=== PATIENT | male | born 1965 | race Caucasian/White ===

== ENCOUNTER 2016-10-27 15:44 | Emergency (ER) | payer MEDICARE ==
--- NOTE | ~2016-10-27 | ER ---
PATIENT'S NAME: AFRICA JUAREZ [facility] AGE: 51 Y [address] ROOM: [place] [address] LOCATION: ED ADMIT DATE: 10/27/2016 ER/Outpatient Report DISCHARGE DATE: 10/27/2016 FAMILY PHYSICIAN: PHYSICIAN, NO ATTENDING PHYSICIAN: Lino Ambrose Time of Arrival: 1544 hours. Time of Evaluation: 1615 hours. CHIEF COMPLAINT: Swollen testicle. HISTORY OF PRESENT ILLNESS: The patient is a 51-year-old male, who presents to the emergency department today with a chief complaint of swollen testicle. He reports that this swollen testicle started last night. The pain got worse today. He was seen in the ER last night and was diagnosed with bronchitis. He saw me yesterday as well in the morning and after a fall. He reports some subjective fevers, chills, and chronic cough. He is attempting to quit smoking. No chest pain. Does have some nausea. No vomiting. No diarrhea or constipation. He has chronic headaches. He reports pain is currently 10/10 in severity. It is worse with movement. It is sharp. PAST MEDICAL HISTORY: Asthma, COPD, hypertension, chronic back pain, chronic bronchitis, and stroke. PAST SURGICAL HISTORY: Right knee, back, and corneal transplant. SOCIAL HISTORY: The patient smokes a pack per day for 30 years. Denies any alcohol or illicit drug use. ALLERGIES: PENICILLIN, LITHIUM, AND BEE STINGS. MEDICATIONS: Tylenol. Please see list. PRIMARY CARE DOCTOR: None. REVIEW OF SYSTEMS: All systems are reviewed by myself and negative with the exception of those discussed in HPI and past medical history. PATIENT'S NAME: AFRICA JUAREZ [facility] AGE: 51 Y [address] ROOM: [place] [address] LOCATION: ED ADMIT DATE: 10/27/2016 ER/Outpatient Report DISCHARGE DATE: 10/27/2016 FAMILY PHYSICIAN: PHYSICIAN, NO ATTENDING PHYSICIAN: Lino Ambrose PHYSICAL EXAMINATION: VITAL SIGNS: Blood pressure 125/87, pulse 77, respiratory rate 22, temperature 98.3, and oxygen saturation 97% on room air. GENERAL: The patient is a 51-year-old male, who appears stated age, in mild- to-moderate acute distress. HEENT: Head normocephalic and atraumatic. Pupils are equal, round, and reactive to light and accommodation. Nares are patent bilaterally. TMs are clear. Oropharynx is clear. NECK: Supple. There is no nuchal rigidity. CARDIOVASCULAR: Regular rate and rhythm. No murmurs, rubs, or gallops. LUNGS: Clear to auscultation bilaterally. No wheezes, rales, or rhonchi. GENITALIA: The patient's right testicle has tenderness to palpation. It was boggy and swollen. Cremaster reflex was intact bilaterally. SKIN: Warm and dry. There is no rashes or lesions noted. LABORATORY AND X-RAYS: Ultrasound of the testicle shows evidence of epididymitis with erythema. CBC is normal. CMP is normal. Lactate is normal. Procalcitonin is normal. LFTs normal. Coags are normal. Urine culture is pending. IMPRESSION: 1. Acute right epididymitis. 2. Initial visit. EMERGENCY DEPARTMENT COURSE: The patient brought back to the examination room. Seen and evaluated by myself. IV was established. Laboratory analysis and imaging are obtained as described above. The patient was given Dilaudid 0.5 mg IV as well as 4 mg of Zofran IV and started on a liter of normal saline. Repeat doses of Dilaudid 0.5 mg are given x2. He was given a dose of Rocephin 1 gram IV. I have discussed the results with the patient and his , who is at the bedside. I have written a prescription for [place] for home, Levaquin for home, as well as doxycycline for home. I have asked he follows up with Urology in 1 to 2 days. I have also asked to follows up with primary care doctor in 3 to 5 days. We discussed different primary care doctor options in the [place] area. I have discussed the sedation warning with the [place]. I have discussed return to care instructions including worsening symptoms or other concerns, to return to the emergency department as soon as possible. The patient agreeable without further questions at this time. DISPOSITION: The patient discharged home in good condition. PATIENT'S NAME: AFRICA JUAREZ [facility] AGE: 51 Y [address] ROOM: [place] [address] LOCATION: ED ADMIT DATE: 10/27/2016 ER/Outpatient Report DISCHARGE DATE: 10/27/2016 FAMILY PHYSICIAN: FOSTER WALLACE ATTENDING PHYSICIAN: Lino Ambrose DO NOVA JIN/terencel /[id number] d: 10/27/162201 t: 10/30/161901, OUTPATIENT REPORT
[2016-10-27 16:26] LABS: BASOPHIL # 0.1 K/uL (0.0-0.2); BASOPHIL % 0.6 %; EOSINOPHIL # 0.5 K/uL (0.0-0.5); EOSINOPHIL % 5.7 %; HEMATOCRIT 42.8 % (37.0-53.0); HEMOGLOBIN 14.3 g/dL (12.0-17.0); IMMATURE GRANULOCYTE % 0.2 %; MCH 30.4 pg (27.0-34.0); MCHC 33.4 gm/dL (32.0-36.5); MCV 90.9 fl (83.0-98.0); MONOCYTE # 0.6 K/uL (0.0-1.0); MONOCYTE % 7.5 %; MPV 8.8 fl (9.4-12.4); NRBC % 0 /100WBC (0-0.00); PLATELET COUNT 270 K/uL (150-450); RBC 4.71 M/uL (4.00-6.00); RDW-CV 12.7 % (11.9-14.6); WBC 8.1 K/uL (4.0-11.0)
[2016-10-27 16:37] LABS: PROTIME 10.2 SECONDS (9.6-11.1); PTT 27 SECONDS (25-32)
[2016-10-27 16:42] LABS: ALBUMIN 3.6 gm/dL (3.5-5.0); ALK PHOS 50 IU/L (33-138); ALT 49 IU/L (12-78); ANION GAP 15.6 (10.0-19.0); AST 24 IU/L (10-40); BLOOD UREA NITROGEN 12 mg/dL (6-24); CALCIUM 8.6 mg/dL (8.5-10.5); CHLORIDE 107 mMol/L (96-110); CO2 22 mMol/L (22-32); ESTIMATED GFR (MDRD EQUATION) > 60; POTASSIUM 3.6 mMol/L (3.7-5.1); SODIUM 141 mMol/L (135-145); TOTAL BILIRUBIN 0.5 mg/dL (0.0-1.5); TOTAL PROTEIN 6.7 g/dL (6.0-8.4)
[2016-10-27 18:06] LABS: BILIRUBIN URINE NEGATIVE (NEGATIVE); BLOOD URINE NEGATIVE /UL (NEGATIVE); COLOR URINE YELLOW (YELLOW); GLUCOSE URINE NEGATIVE (NEGATIVE); KETONE URINE NEGATIVE (NEGATIVE); LEUKOCYTES URINE NEGATIVE /UL (NEGATIVE); NITRITE URINE NEGATIVE (NEGATIVE); PROTEIN URINE NEGATIVE (NEGATIVE); SPEC GRAVITY URINE 1.025 (1.003-1.035); TURBIDITY URINE CLEAR (CLEAR); UROBILINOGEN URINE NORMAL (NORMAL)
== END 2016-10-27 18:25 | disposition disaster alternative care site (69) ==
LOC: GMED 15:44
PROVIDERS: Emergency Medicine
DX: N45.1 Epididymitis (principal); F17.210 Nicotine dependence, cigarettes, uncomplicated; J44.9 Chronic obstructive pulmonary disease, unspecified; I10 Essential (primary) hypertension; J45.909 Unspecified asthma, uncomplicated; Z88.0 Allergy status to penicillin; Z88.8 Allergy status to other drugs, medicaments and biological substances; Z91.030 Bee allergy status
CPT/HCPCS: J0696; J1170; J2405; J7030; J7050

== ENCOUNTER 2016-12-16 21:16 | Observation (INO) | payer MEDICARE ==
[~2016-12-16] VITALS: Ht 172.7 cm; Wt 93.0 kg
--- NOTE | ~2016-12-16 | DS ---
PATIENT'S NAME: AFRICA JUAREZ [facility] AGE: 51 Y [address] ROOM: [address] [address] [place] [facility] [place]: 12/16/2016 Discharge Summary DISCHARGE DATE: 12/18/2016 FAMILY PHYSICIAN: Physician, Unknown ATTENDING PHYSICIAN: William De Paz V Discharging attending physician on the day of discharge, Dr. Ballesteros. DISCHARGE DIAGNOSES: 1. Lethargy, etiology undetermined, likely med related, resolved. 2. Sinus bradycardia. 3. Chronic pain with acute on chronic exacerbation. 4. History of seizures. 5. History of L4-5 fusion. 6. Tobaccoism. DISCHARGE MEDICATIONS: 1. Amlodipine 2.5 mg p.o. daily. 2. ASA 81 mg p.o. daily. 3. Carvedilol 12.5 mg p.o. b.i.d. 4. Naprosyn 500 mg p.o. b.i.d. 5. NicoDerm patch 14 mg transdermally daily. 6. Omeprazole 20 mg p.o. daily. 7. Lyrica 300 mg p.o. daily. 8. Oxycodone HCl/acetaminophen 5/325 0.5 mg p.o. q.8 hours daily p.r.n. 9. Albuterol 6.7 g HFA q.4 hours p.r.n. shortness of breath. 10. Nitroglycerin 0.4 mg sublingually p.r.n. chest pain. 11. Albuterol sulfate 1 vial INH q.4 hours p.r.n. shortness of breath. 12. APAP 500 mg 1 or 2 tablets every 6 hours p.r.n. pain. PERTINENT LABORATORY DATA: 1. Urine drug screen was positive for benzodiazepines. TSH 0.284. 2. Cortisol 1.7. 3. Arterial blood gas; pH 7.43, pCO2 33, PO2 92, HCO3 21.9, percent saturation 97%, CO2 content 23, and base excess -1.8. RADIOLOGIC DATA: Cranial MRI without contrast done 12/17/2016 showed no acute intracranial abnormalities. No CVA nor hemorrhage, moderate pansinusitis, and no areas of encephalomalacia noted given his history of CVA, which does not correlate. HOSPITAL COURSE: The patient was admitted on 12/16/[address] De Paz. Please refer to his admitting H and P. At that point, urine tox screen, TSH, cortisol level were obtained; the MRI of the brain with contrast was ordered; and opioids and Lyrica were held from his home med list. On the morning of PATIENT'S NAME: AFRICA JUAREZ [facility] AGE: 51 Y [address] ROOM: [place] [address] [place] [facility] [place]: 12/16/2016 Discharge Summary DISCHARGE DATE: 12/18/2016 FAMILY PHYSICIAN: Physician, Unknown ATTENDING PHYSICIAN: William De Paz V 12/17/2016, the patient was still lethargic, but able to be conversive, was alert and orientated, noted a flat affect, there were no neurologic deficits that morning. ABG was obtained at that point. ABGs have been drawn at [facility], but unable to be ran. The patient had an MRI which was found to be negative. The patient did have complaint of acute on chronic back pain. Again, opioids were cautiously considered given his lethargy. Ultimately, Percocet 5/325 one tablet every 8 hours was initiated on 12/17/2016. The patient was ambulatory on this day and was eating. Ultimately on 12/18, the patient was able to ambulate in the hallways, was eating, still complained of his low lumbosacral back pain. The patient was taking the Naprosyn and Percocet. Arrangements were made for the patient to be discharged to home on 12/18/2016. He should follow up with Dr. Zarate who is an Internal Medicine physician in [place]. Arrangements for this have been made on January 06 at 1:30 p.m. The patient voiced understanding. I did receive phone calls from Dr. Harry Hughes, anesthesiologist, who had performed his pressure point injections, checking in and wanting update for the patient's condition. Appropriate forms were signed and records were released. The patient was counseled extensively on tobacco cessation. Nicotine patches were offered and prescription written for. I encouraged him to follow up and get established with an Internal Medicine physician as has been arranged with Dr. Zarate. The patient seems earnest in pursuing this and following up. Discharge of this patient took less than 35 minutes. ELMER ABRAHAM PA-C FOR MD CATIE ANGULO/modl /[id number] CC: Mario Zarate MD d: 12/19/16 0042 t: 01/06/17 0913, DISCHARGE SUMMARY
--- NOTE | ~2016-12-16 | HP ---
PATIENT'S NAME: AFRICA JUAREZ [facility] AGE: 51 Y [address] ROOM: [place] [address] [place] [facility] [place] DATE: 12/16/2016 History & Physical DISCHARGE DATE: FAMILY PHYSICIAN: PHYSICIAN, UNKNOWN ATTENDING PHYSICIAN: MAYDA SMITH V DATE OF SERVICE: CHIEF COMPLAINT: Very sleepy. HISTORY OF PRESENT ILLNESS: This is obtained entirely from the patient. He is a 51-year-old male with past medical history of chronic pain. The patient also volunteers a history of seizures for which he takes Lyrica. He also volunteers a history of a stroke for which he had received tPA and has sustained a year long of physical therapy for total right-sided paralysis from which he has apparently totally recovered. The patient has undergone a routine trigger point as well as sacroiliac joint injections earlier today with Dr. Ocampo, at the [facility] in [place]. Thereafter, the patient has complained of severe sleepiness/fatigue. It is unclear to me as to what agents the patient received in association with this procedure, though as per the patient he has received Haldol and Versed. The transferring physician informed that he received Versed and fentanyl. However, this was over 10 hours from the time that the patient arrived to [facility]. He was evaluated in the emergency room in [facility]. He had an entirely unremarkable workup, but continued to be extremely sleepy as his only complaint. He was transferred to [facility] for further evaluation. At this point, he denies any chest pain, shortness of breath, nausea, vomiting, diarrhea, chest pain, palpitations, or diaphoresis. REVIEW OF SYSTEMS: All 10 systems have been reviewed and are negative aside from pertinent positives mentioned above. PAST MEDICAL HISTORY: As provided by the patient is that of: 1. Seizures. 2. CVA x2, status post tPA, none of these were in our area. 3. Chronic pain. 4. "Broken back.". 5. Questionable essential hypertension. PATIENT'S NAME: AFRICA JUAREZ [facility] AGE: 51 Y [address] ROOM: [place] [address] [place] [facility] [place] DATE: 12/16/2016 History & Physical DISCHARGE DATE: FAMILY PHYSICIAN: PHYSICIAN, UNKNOWN ATTENDING PHYSICIAN: MAYDA SMITH V CURRENT MEDICATIONS: 1. Albuterol. 2. Amlodipine. 3. Aspirin. 4. Carvedilol. 5. Nitroglycerin. 6. Omeprazole 20. 7. Oxycodone. 8. Acetaminophen. 9. Pregabalin 300 h.s. SOCIAL HISTORY: The patient endorses ongoing use of tobacco, but denies any drug or alcohol abuse. 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 FAMILY HISTORY: The patient does not endorse any pertinent family history though that was reviewed. PHYSICAL EXAMINATION: VITAL SIGNS: His blood pressure is 100s/60s, heart rate is in the 80s, saturating 100% on 2 L nasal cannula, 96% on room air, end-tidal CO2 is 40, he is afebrile, and respirations are 16. GENERAL: Appears as a well-developed, well-nourished, middle-aged male, in no acute distress though severely lethargic. NEUROLOGIC: Reveals the patient is alert and oriented x3, lethargic, but very easily arousable and appropriate in all behaviors. He is also very much alert and oriented and provide accurate answers to complex questions. Neurological exam is grossly nonfocal. He has preserved sensation and strength in all extremities. His Babinski's are down bilaterally. The patient does not have any nuchal rigidity. His Kernig's and Brudzinski's signs are negative and his straight leg is negative. EYES: Exam shows pupils are approximately 2-mm and reactive to light bilaterally. ENT: Exam reveals no stridor. LYMPHATIC: Exam shows no cervical lymphadenopathy. ENDOCRINE: Exam shows no thyromegaly. LUNGS: Clear to auscultation in all infante. HEART: Rate is regular. No appreciable murmurs, gallops, or rubs. ABDOMEN: Obese, soft, nontender, nondistended. : Exam reveals no costovertebral angle tenderness. VASCULAR: Exam shows 2+ pedal pulses. MUSCULOSKELETAL: Exam shows no muscle or joint abnormalities. PSYCH: Exam reveals very lethargic mood, but preserved cognition and flat PATIENT'S NAME: AFRICA JUAREZ [facility] AGE: 51 Y [address] ROOM: [place] [address] [place] [facility] [place] DATE: 12/16/2016 History & Physical DISCHARGE DATE: FAMILY PHYSICIAN: PHYSICIAN, UNKNOWN ATTENDING PHYSICIAN: MAYDA SMITH. LABORATORY DATA: Studies from the outside facility are entirely unremarkable. ASSESSMENT AND PLAN: This is a 51-year-old male who will be admitted with altered level of consciousness. At this point, the underlying etiology for his presentation is unclear. He reports that he received the same type of procedural sedation/anesthesia for which he normally gets for his trigger points and sacroiliac joint injections. As such, we will monitor the patient and reassess in the morning. We will consider Neurological evaluation. We will also get an MRI of his brain. To me the story of this patient having had 2 cerebrovascular accidents with tPA, which produced a year of right-sided hemiplegia is inconsistent with a CAT scan, which does not show any residual encephalomalacia. We will also request those records from facilities where this was performed. It is possible that the patient's presentation is supratentorial and we will consider a Psychiatry evaluation though, at this point, I think we should let the patient rest overnight. We will check his TSH and Cortisol levels at that these tests have not been done yet. Chronic pain. We will try and hold off on his opioids that might be contributing factor to his presentation. Additional management will depend on clinical course. Time dedicated to this patient encounter is 25 minutes. MD RAYMOND SOLORIO/yovani /[id number] D: [id number] T: [id number] HISTORY & PHYSICAL
[2016-12-16] MEDS ORDERED: COREG25 MG PO (23:18)
[2016-12-16] MEDS ORDERED: ASPIR 8181 MG PO (23:18)
[2016-12-16] MEDS ORDERED: LYRICA300 MG PO (23:19)
[2016-12-16] MEDS ORDERED: NORVASC2.5 MG PO (23:19)
[2016-12-16] MEDS ORDERED: PRILOSEC20 MG PO (23:23)
[2016-12-16] MEDS ORDERED: PERCOCET 5-3251 EACH PO (23:24)
[2016-12-16] MEDS ORDERED: PROVENTIL OR V6.7 GM INH (23:25)
[2016-12-16] MEDS ORDERED: NITROSTAT0.4 MG SL (23:28)
[2016-12-17 02:32] LABS: BARBITURATE NEGATIVE (NEGATIVE); COCAINE NEGATIVE (NEGATIVE); OPIATES NEGATIVE (NEGATIVE)
[2016-12-17 02:35] LABS: AMPHETAMINE NEGATIVE (NEGATIVE)
[2016-12-17] MEDS ORDERED: ALBUTEROL2.5 MG/31 INH (09:25)
[2016-12-17] MEDS ORDERED: TYLENOL EXTRA500 MG PO (09:25)
[2016-12-17 11:03] LABS: BICARBONATE 21.9 mmol/L (18.0-23.0); PCO2 33 mmHg (35-45); PO2 92 mmHg (80-90)
[2016-12-18] MEDS ORDERED: NAPROSYN500 MG PO (12:35)
[2016-12-18] MEDS ORDERED: NICOTINE PATCH1 EAC1 TRANS (12:37)
== END 2016-12-18 15:00 | disposition disaster alternative care site (69) ==
LOC: GMSU 22:58
PROVIDERS: Physician Assistant; ADMIT Internal Medicine
DX: R53.83 Other fatigue (principal); G89.29 Other chronic pain; R00.1 Bradycardia, unspecified; F17.200 Nicotine dependence, unspecified, uncomplicated; Z86.73 Personal history of transient ischemic attack (TIA), and cerebral infarction without residual deficits; Z86.69 Personal history of other diseases of the nervous system and sense organs
CPT/HCPCS: G0237; G0378

== ENCOUNTER → 2016-12-16 | Outpatient (CLI) | payer MEDICARE ==
[~2016-12-16] MED LIST: ALBUTEROL2.5 MG/31 INH; ASPIR 8181 MG PO; COREG25 MG PO; LYRICA300 MG PO; NAPROSYN500 MG PO; NICOTINE PATCH1 EAC1 TRANS; NITROSTAT0.4 MG SL; NORVASC2.5 MG PO; PERCOCET 5-3251 EACH PO; PRILOSEC20 MG PO; PROVENTIL OR V6.7 GM INH; TYLENOL EXTRA500 MG PO
== END | disposition disaster alternative care site (69) ==
LOC: GAMB 22:05
DX: R41.82 Altered mental status, unspecified (principal); I95.9 Hypotension, unspecified; M54.9 Dorsalgia, unspecified; G89.29 Other chronic pain; G40.909 Epilepsy, unspecified, not intractable, without status epilepticus; J44.9 Chronic obstructive pulmonary disease, unspecified; J45.909 Unspecified asthma, uncomplicated; I10 Essential (primary) hypertension; R53.83 Other fatigue; Z79.82 Long term (current) use of aspirin; Z79.891 Long term (current) use of opiate analgesic; Z79.899 Other long term (current) drug therapy; Z88.0 Allergy status to penicillin; Z88.8 Allergy status to other drugs, medicaments and biological substances
CPT/HCPCS: A0422; A0425; A0426